=== PATIENT | male | born 1990 | race Caucasian/White ===

== ENCOUNTER 2018-03-17 21:15 | Inpatient (IN) | payer OTHER ==
[2018-03-17 22:29] LABS: BASO % 0.4 % (0.0-2.0); HEMOGLOBIN 12.3 g/dL (12.0-18.0); LYMPH # 1.6 K/uL (1.0-4.3); LYMPH % 27.1 % (20.0-40.0); MEAN CELL VOLUME 78.4 fl (80.0-94.0); MEAN CORPUSCULAR HEMOGLOBIN 26.8 pg (27.0-31.0); MEAN CORPUSCULAR HGB CONC 34.2 g/dL (33.0-37.0); MEAN PLATELET VOLUME 7.9 fl (7.2-11.7); MONO # 0.6 K/uL (0.0-0.8); MONO % 10.2 % (0.0-10.0); NEUT # 3.7 K/uL (1.8-7.0); NEUT % 62.3 % (50.0-75.0); NRBC % 0.1 % (0.0-0.0); RBC 4.58 Mil/uL (4.40-5.90); RED CELL DISTRIBUTION WIDTH 13.1 % (11.5-14.5)
[2018-03-17 22:47] LABS: INR 1.1 (0.9-1.2); PARTIAL THROMBOPLASTIN TIME 30.7 Seconds (25.6-37.1); PROTHROMBIN TIME 12.6 Seconds (9.8-13.1)
[2018-03-17 23:18] LABS: BLOOD UREA NITROGEN 10 mg/dl (9-20)
[2018-03-17 23:19] LABS: CALCIUM 9.3 mg/dL (8.4-10.2); GFR AFRICAN-AMERICAN > 60; GFR NON-AFRICAN AMERICAN > 60
[2018-03-17 23:20] LABS: ALB/GLOB RATIO 1.2 (1.0-2.1)
[2018-03-17] MEDS ORDERED: Potassium Chloride 20 mEq ER Tab PO ONE (23:22)
--- NOTE | 2018-03-17 23:29 | ED PDOC ---
HPI: General Adult Time Seen by Provider: 03/17/18 21:24 Chief Complaint (Nursing): Weakness/Neurological Deficit Chief Complaint (Provider): my legs are weak History Per: Patient History/Exam Limitations: no limitations Onset/Duration Of Symptoms: Days Current Symptoms Are (Timing): Still Present Location Of Discomfort (Image): 1 - weakness 2 - weakness Additional Complaint(s): 27yo male history of thyroid disease now off meds for last several months, c/o weakness to proximal legs and arms, starting yesterday worsening this morning on awakening. States he fell today with resultant back pain and headache. Symptoms are symmetric and denies headache, fever, syncope, chest pain or SOB. Supposed to take methimazole but unable to see PMD for several months. Denies recent illness, rash or fever. Does admit to palpitations, weight loss and sweating. Works at [employer], with recent exercise intolerance. Past Medical History Reviewed: Historical Data, Nursing Documentation, Vital Signs Vital Signs: Last Vital Signs Temp 97.2 F L 03/18/18 16:16 Pulse 96 H 03/18/18 16:16 Resp 20 03/18/18 16:16 BP 137/87 03/18/18 16:16 Pulse Ox 97 03/18/18 16:16 - Medical History Other PMH: per prior chart Graves disease - Surgical History Surgical History: No Surg Hx - Family History Family History: States: Unknown Family Hx - Social History Current smoker - smoking cessation education provided: No Alcohol: None Drugs: Denies - Home Medications Home Medications: Ambulatory Orders Medication Instructions Recorded Albuterol HFA [Ventolin HFA 90 2 puff INH PRN 03/18/18 mcg/actuation (8 g)] Methimazole 10 mg PO TID 03/18/18 - Allergies Allergies/Adverse Reactions: Allergies Allergy/AdvReac Type Severity Reaction Status Date / Time No Known Allergies Allergy Verified 03/17/18 21:36 Review of Systems Constitutional: Positive for: Weakness, Malaise. Negative for: Fever, Chills Eyes: Negative for: Vision Change, Eyelid Inflammation Cardiovascular: Negative for: Chest Pain Respiratory: Negative for: Cough Gastrointestinal: Negative for: Nausea, Abdominal Pain, Diarrhea Genitourinary Male: Negative for: Dysuria Musculoskeletal: Negative for: Neck Pain, Back Pain Skin: Negative for: Rash, Lesions Neurological: Positive for: Weakness. Negative for: Numbness, Incoordination, Change in Speech, Confusion, Seizures, Altered Mental Status, Headache, Dizziness Psych: Negative for: Depression Physical Exam - Reviewed Nursing Documentation Reviewed: Yes Vital Signs Reviewed: Yes - Physical Exam Appears: Positive for: Non-toxic (speech clear no facial assymmetry) Head Exam: Positive for: ATRAUMATIC, NORMAL INSPECTION, NORMOCEPHALIC Skin: Positive for: Normal Color, Warm, DRY Eye Exam: Positive for: Normal appearance, EOMI, PERRL, Other (mild exopthalmos) ENT: Positive for: Normal ENT Inspection Neck: Positive for: Painless ROM (+nodular goiter ), Supple Cardiovascular/Chest: Positive for: Regular Rate, Rhythm Respiratory: Positive for: CNT, Normal Breath Sounds Gastrointestinal/Abdominal: Positive for: Soft. Negative for: Tenderness Back: Positive for: Normal Inspection Extremity: Positive for: Normal ROM DTR - Knee (R): 3+ DTR - Knee (L): 3+ Neurologic/Psych: Positive for: Alert, Gait (slow), Other (babinski downgoing) - Laboratory Results Result Diagrams: 03/17/18 22:26 03/17/18 22:26 - ECG ECG: Positive for: Interpreted By Sd ECG Rhythm: Positive for: Normal ST Segment, Sinus Tachycardia Rate: 110 O2 Sat by Pulse Oximetry: 99 Pulse Ox Interpretation: Normal Medical Decision Making Medical Decision Making: pt w resting tachycardia, mild exopthalmos, concern for thyrotoxicosis labs reveal hypokalemia, TSH <0.02, T3 T4 pending. Imaging obtained given c/o back pain and mild headache, pending Given tachycardia, proximal muscle weakness, admit to medicine for endocrine eval and further workup methimazole and metoprolol initiated d/w Dr Osborn 1215am for admission Disposition - Clinical Impression Clinical Impression: Thyrotoxicosis - Patient ED Disposition Is Patient to be Admitted: Yes Counseled Patient/Family Regarding: Studies Performed, Diagnosis - Disposition Disposition Time: 11:55 Condition: FAIR - Pt Status Changed To: Hospital Disposition Of: Inpatient - Admit Certification Admit to Inpatient:: After my assessment, the patient will require hospitalization for at least two midnights. This is because of the severity of symptoms shown, intensity of services needed, and/or the medical risk in this patient being treated as an outpatient.
[2018-03-17 23:30] LABS: ALBUMIN 3.5 g/dL (3.5-5.0); ALT/SGPT 39 U/L (21-72); AST/SGOT 35 U/L (17-59)
[2018-03-17 23:47] LABS: T3 UPTAKE 58.6 % (23.0-41.0)
[2018-03-18] MEDS ORDERED: Potassium Chloride 20 mEq ER Tab PO ONE (00:14)
--- NOTE | 2018-03-18 00:38 | CT ---
EXAM: CT Head Without Intravenous Contrast EXAM DATE/TIME: 03/17/2018 9:38 PM CLINICAL HISTORY: 27 years old, male; Signs and symptoms; Other: Bilat leg weakness; Patient HX: HX. Of thyroid disease; Additional info: R/O ich TECHNIQUE: Axial computed tomography images of the head/brain without intravenous contrast. All CT scans at this facility use at least one of these dose optimization techniques: automated exposure control; mA and/or kV adjustment per patient size (includes targeted exams where dose is matched to clinical indication); or iterative reconstruction. Coronal and sagittal reformatted images were created and reviewed. COMPARISON: There are no prior studies for comparison. FINDINGS: Brain and ventricles: Ventricles are normal in size and configuration. There is no midline shift. There are no intra-axial or extra-axial mass lesions or areas of hemorrhage. There are no abnormal fluid collections. Harvey-white differentiation is maintained. Bones: Cranial vault is intact. Soft tissues: unremarkable Sinuses: There is no acute sinusitis. Ears and mastoids: Middle ears and mastoids are unremarkable Orbits: Orbital contents are unremarkable. IMPRESSION: No acute intracranial abnormality
--- NOTE | 2018-03-18 00:45 | CT ---
EXAM: CT Cervical Spine Without Intravenous Contrast EXAM DATE/TIME: 03/17/2018 9:38 PM CLINICAL HISTORY: 27 years old, male; Signs and symptoms; Weakness; Patient HX: HX of thyroid disease; Additional info: B/l le and ue weakness TECHNIQUE: Axial computed tomography images of the cervical spine without intravenous contrast. All CT scans at this facility use at least one of these dose optimization techniques: automated exposure control; mA and/or kV adjustment per patient size (includes targeted exams where dose is matched to clinical indication); or iterative reconstruction. Coronal and sagittal reformatted images were created and reviewed. COMPARISON: There are no prior studies for comparison. FINDINGS: Vertebrae: There is maintenance of the cervical lordosis. There is no prevertebral soft tissue swelling. There are no fractures. There is mild disc space narrowing anteriorly at C2/C3. Remaining cervical disc spaces are maintained. There is partial fusion of the T1 and T2 vertebral bodies.. Facet joints align anatomically. There is facet ankylosis T1/T2. Spinous processes align in the expected fashion. Bone mineralization is normal. Discs/spinal canal/neural foramina: See above. Soft tissues: See above. Lung apices: There is minimal scarring at the right apex. Left apex is clear. 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
--- NOTE | 2018-03-18 01:07 | CT ---
EXAM: CT Thoracic Spine Without Intravenous Contrast EXAM DATE/TIME: 03/17/2018 9:38 PM CLINICAL HISTORY: 27 years old, male; Signs and symptoms; Weakness; Patient HX: HX of thyroid. Disease; Additional info: B/l ue and le weakness TECHNIQUE: Axial computed tomography images of the thoracic spine without intravenous contrast. All CT scans at this facility use at least one of these dose optimization techniques: automated exposure control; mA and/or kV adjustment per patient size (includes targeted exams where dose is matched to clinical indication); or iterative reconstruction. Coronal and sagittal reformatted images were created and reviewed. COMPARISON: There are no prior studies for comparison. FINDINGS: Vertebrae: Thoracic vertebral bodies are normal in height. Posterior elements are intact at all levels. There is partial ankylosis T1/T2 vertebral bodies. There is T1/T2 facet joint ankylosis. Remaining facet joints are patent.Spinous processes align in the expected fashion. There is mild disc space narrowing at multiple levels. There are small early osteophytes. There are Schmorl's nodes at multiple levels greatest T10-T11 and T11-T12. Discs/spinal canal/neural foramina: See above. Soft tissues: Paraspinous soft tissues are unremarkable. Lungs: Motion limits evaluation of pulmonary parenchyma. IMPRESSION: Early degenerative change, no acute osseous abnormality ; partial ankylosis T1/T2
--- NOTE | 2018-03-18 01:07 | CT ---
EXAM: CT Lumbar Spine Without Intravenous Contrast EXAM DATE/TIME: 03/17/2018 9:38 PM CLINICAL HISTORY: 27 years old, male; Signs and symptoms; Weakness; Patient HX: HX: Of thyroid disease; Additional info: Le weakness TECHNIQUE: Axial computed tomography images of the lumbar spine without intravenous contrast. All CT scans at this facility use at least one of these dose optimization techniques: automated exposure control; mA and/or kV adjustment per patient size (includes targeted exams where dose is matched to clinical indication); or iterative reconstruction. Coronal and sagittal reformatted images were created and reviewed. COMPARISON: There are no prior studies for comparison. FINDINGS: Vertebrae: Lumbar vertebral bodies are normal in height and alignment. There are no fractures. There is mild degenerative disc disease. There are small Schmorl's nodes at multiple levels.Facet joints align anatomically.Spinous processes align in the expected fashion. There is partial ankylosis of the left sacroiliac joint. Discs/spinal canal/neural foramina: See above. Soft tissues: Psoas and paraspinous muscles are symmetric. IMPRESSION: Early degenerative change, no acute osseous abnormality
[2018-03-18 01:57] LABS: T4 37.3 ug/dl (5.5-11.0)
[2018-03-18 01:58] LABS: T3 9.4 nmol/L (1.49-2.60)
[2018-03-18] MEDS ORDERED: Dextrose 5%/0.45% NS 1,000 ML IV SCH (06:00)
[2018-03-18] MEDS ORDERED: Pneumococcal 23-Valent Vaccine IM ONE (06:00)
[2018-03-18] MEDS: Enoxaparin 40 mg Syringe SC SCH (09:09)
--- NOTE | 2018-03-18 12:22 | CP.PCM.HP ---
History of Present Illness - History of Present Illness History of Present Illness: 27 YR OLD MALE WITH HISTORY OF HYPERTHYROIDISM WHO IS ADMITTED BECAUSE OF THYROID CRISIS AND DIFFICULTY WALKING WITH TACHYCARDIA.HE WAS SEEN IN THE ER AND NOTED TO HAVE SEVERE HYPERTHYROIDISM.HE IS THEREFORE ADMITTED FOR EVALUATION AND THERAPY.DENIES CHEST PAINS/SOB. HX OF BRONCHIAL ASTHMA CONTROLLED ON VENTOLIN INHALER. Present on Admission - Present on Admission Any Indicators Present on Admission: Yes Past Patient History - Past Medical History & Family History Past Medical History?: Yes - Past Social History Smoking Status: Never Smoked - CARDIAC Hx Hypertension: Yes - PULMONARY Hx Respiratory Disorders: Yes Hx Asthma: Yes - NEUROLOGICAL Hx Neurological Disorder: No - HEENT Other/Comment: wears glasses for sight - RENAL Hx Chronic Kidney Disease: No - ENDOCRINE/METABOLIC Hx Diabetes Mellitus Type 1: Yes Hx Hyperthyroidism: Yes - HEMATOLOGICAL/ONCOLOGICAL Hx Blood Disorders: No - INTEGUMENTARY Hx Dermatological Problems: No - MUSCULOSKELETAL/RHEUMATOLOGICAL Hx Falls: Yes - GENITOURINARY/GYNECOLOGICAL Hx Genitourinary Disorders: No - PSYCHIATRIC Hx Substance Use: No - SURGICAL HISTORY Hx Surgeries: No - ANESTHESIA Hx Anesthesia: No Meds Allergies/Adverse Reactions: Allergies Allergy/AdvReac Type Severity Reaction Status Date / Time No Known Allergies Allergy Verified 03/17/18 21:36 Physical Exam - Constitutional Appears: No Acute Distress - Head Exam Head Exam: ATRAUMATIC, NORMAL INSPECTION, NORMOCEPHALIC - Eye Exam Eye Exam: EOMI, Normal appearance, PERRL Pupil Exam: NORMAL ACCOMODATION, PERRL - ENT Exam ENT Exam: Mucous Membranes Moist, Normal Exam - Neck Exam Neck exam: Positive for: Normal Inspection - Respiratory Exam Respiratory Exam: Clear to Auscultation Bilateral, NORMAL BREATHING PATTERN - Cardiovascular Exam Cardiovascular Exam: Tachycardia - GI/Abdominal Exam GI & Abdominal Exam: Normal Bowel Sounds, Soft. absent: Tenderness - Rectal Exam Rectal Exam: NORMAL INSPECTION - Extremities Exam Extremities exam: Positive for: normal inspection - Back Exam Back exam: NORMAL INSPECTION - Neurological Exam Neurological exam: Alert, CN II-XII Intact, Normal Gait, Oriented x3, Reflexes Normal - Psychiatric Exam Psychiatric exam: Normal Affect, Normal Mood - Skin Skin Exam: Dry, Intact, Normal Color, Warm Results - Vital Signs Recent Vital Signs: Last Vital Signs Temp 98 F 03/18/18 12:17 Pulse 98 H 03/18/18 12:17 Resp 18 03/18/18 12:17 BP 145/88 03/18/18 12:17 Pulse Ox 96 03/18/18 12:17 - Labs Result Diagrams: 03/17/18 22:26 03/17/18 22:26 Labs: Laboratory Results - last 24 hr 03/17/18 03/17/18 03/17/18 22:26 22:26 22:26 WBC 6.0 RBC 4.58 Hgb 12.3 Hct 35.9 MCV 78.4 L MCH 26.8 L MCHC 34.2 RDW 13.1 Plt Count 233 MPV 7.9 Neut % (Auto) 62.3 Lymph % (Auto) 27.1 [place] % (Auto) 10.2 H Eos % (Auto) 0.0 Baso % (Auto) 0.4 Neut # (Auto) 3.7 Lymph # (Auto) 1.6 [place] # (Auto) 0.6 Eos # (Auto) 0.0 Baso # (Auto) 0.0 PT 12.6 INR 1.1 APTT 30.7 Sodium 143 Potassium 3.0 L Chloride 105 Carbon Dioxide 25 Anion Gap 16 BUN 10 Creatinine 0.5 L Est GFR ( Amer) > 60 Est GFR (Non-Af Amer) > 60 POC Glucose (mg/dL) Random Glucose 168 H Calcium 9.3 Phosphorus Magnesium Total Bilirubin 0.4 AST 35 ALT 39 Alkaline Phosphatase 92 Total Creatine Kinase 44 L Troponin I 0.0390 Total Protein 6.6 Albumin 3.5 Globulin 3.0 Albumin/Globulin Ratio 1.2 Thyroxine (T4) 37.3 H Total T3 9.4 H T3 Uptake 58.6 H TSH 3rd Generation < 0.02 L 03/17/18 03/18/18 03/18/18 23:46 03:30 05:35 WBC RBC Hgb Hct MCV MCH MCHC RDW Plt Count MPV Neut % (Auto) Lymph % (Auto) [place] % (Auto) Eos % (Auto) Baso % (Auto) Neut # (Auto) Lymph # (Auto) [place] # (Auto) Eos # (Auto) Baso # (Auto) PT INR APTT Sodium Potassium Chloride Carbon Dioxide Anion Gap BUN Creatinine Est GFR ( Amer) Est GFR (Non-Af Amer) POC Glucose (mg/dL) 123 H 113 H Random Glucose Calcium Phosphorus 3.6 Magnesium 1.6 Total Bilirubin AST ALT Alkaline Phosphatase Total Creatine Kinase Troponin I Total Protein Albumin Globulin Albumin/Globulin Ratio Thyroxine (T4) Total T3 T3 Uptake TSH 3rd Generation 03/18/18 10:48 WBC RBC Hgb Hct MCV MCH MCHC RDW Plt Count MPV Neut % (Auto) Lymph % (Auto) [place] % (Auto) Eos % (Auto) Baso % (Auto) Neut # (Auto) Lymph # (Auto) [place] # (Auto) Eos # (Auto) Baso # (Auto) PT INR APTT Sodium Potassium Chloride Carbon Dioxide Anion Gap BUN Creatinine Est GFR ( Amer) Est GFR (Non-Af Amer) POC Glucose (mg/dL) 186 H Random Glucose Calcium Phosphorus Magnesium Total Bilirubin AST ALT Alkaline Phosphatase Total Creatine Kinase Troponin I Total Protein Albumin Globulin Albumin/Globulin Ratio Thyroxine (T4) Total T3 T3 Uptake TSH 3rd Generation Assessment & Plan - Assessment and Plan (Free Text) Assessment: THYROTOXICOSIS TACHYCARDIA DUE TO THYROID DZ HX OF ASTHMA Plan: CONTINUE THERAPY ORDERED ENDOCRINOLOGY EVALUATION - Date & Time Date: 03/18/18 Time: 12:27
[2018-03-19 00:28] VITALS: RESP 18
--- NOTE | 2018-03-19 04:01 | CON ---
DATE: 03/18/2018 LOCATION: Room 416, Bed 2. HISTORY OF PRESENT ILLNESS: This is a 27-year-old male with known history of Graves disease and hyperthyroidism, but has been off medications for over 2 months because of insurance constraints and has now been admitted because of progressively worsening shortness of breath and palpitations and is being referred now for endocrine evaluation and management. PAST MEDICAL HISTORY: History of hyperthyroidism, previously on methimazole taken three times a day but not as mentioned, was discontinued because of financial and insurance constraints. FAMILY HISTORY: Positive for thyroid disorder with his father and his sibling having thyroid condition. Also history of hypertension and dyslipidemia. SOCIAL HISTORY: The patient has supportive family. No known substance use. REVIEW OF SYSTEMS: As mentioned above, admits to generalized body weakness with marked insomnia and disrupted sleep patterns. Also admits to episodic dizziness and lightheadedness with suboptimal energy level and generalized body weakness, worse in the last 2 to 3 weeks prior to admission. Admits to progressively worsening palpitations with shortness of breath, initially on exertion, and then at rest. Also admits to nausea, dyspepsia, and hyperdefecation. Moreover, admits to episodic bouts of anxiety and mood instability and has been recently quick tempered as noted. PHYSICAL EXAMINATION: GENERAL: This is an average built male, in no apparent distress. VITAL SIGNS: Blood pressure of 150/90, pulse of 110 beats per minute and regular, temperature 98, respirations 20, height is 5 feet 7 inches, weight is 175 pounds. HEENT: Head normocephalic. Eyes anicteric with pink conjunctivae. There is overt proptosis and lid retraction with positive stare noted bilaterally. NECK: Supple. Thyroid gland shows diffuse moderate thyromegaly, which is firm and nontender with positive bruit, most prominent of the anterior neck area. HEART: Shows hyperdynamic precordium. S1, S2 is rapid and regular. LUNGS: Clear to auscultation. ABDOMEN: Abdomen is flat, soft with positive bowel sounds. EXTREMITIES: No peripheral edema. Pulses are +2 bilaterally. LABORATORY DATA: His chemistry showed a BUN of 10, sodium 143, potassium 3, chloride 105, CO2 of 25, glucose 168, and creatinine 0.5. His total T4 is 37.3 with a T3 of 9.4 and a TSH of less than 0.02. ASSESSMENT: This is a 27-year-old male with overt thyrotoxicosis, presenting here with marked hyperthyroidism, both historically, clinically, and biochemically related to recent drug omission with known history of Graves disease as noted. He also has overt Graves orbitopathy with lid retraction and proptosis as noted. He also has an underlying diffuse toxic goiter of moderate dimensions with no overt compressive or obstructive manifestations at this time. PLAN OF MANAGEMENT: As discussed with the patient lengthily at bedside, the imperative need for initiation of high-dose medical therapy will be undertaken today, and we will increase the Tapazole to 20 mg p.o. t.i.d. after meals to start today as ordered. We will continue the beta blockers as given and observe his metabolic and hemodynamic response thereof. We will obtain a comprehensive thyroid hormonal profile tomorrow to include a total and free T4 and TSH as ordered. We will add thyroid stimulating immunoglobulin and thyroid peroxidase antibody to confirm and/or indicate the presence of underlying thyroid autoimmunity. We will also schedule a thyroid ultrasound to fully measure the thyroid lobe dimensions. The therapeutic options were discussed with the patient at the bedside i.e., medical therapy, radioactive iodine ablation which is not really recommended in the patient with a moderately large goiter and surgical resection, thereof. The patient at this time is very inclined to go for surgical resection as noted. We will obtain serial chemistries and supplement accordingly needed. We would supplement potassium if hypokalemia persist as this is expected in the presence of overt hyperthyroidism. We will follow with you. Mili Oh MD
[2018-03-19 05:08] VITALS: O2SAT 98
[2018-03-19 08:09] VITALS: BP 133/75; TEMP 98.1
[2018-03-19] MEDS: Enoxaparin 40 mg Syringe SC SCH (08:35)
--- NOTE | 2018-03-19 10:37 | CP.PCM.DIS ---
Provider - Provider Date of Admission: 03/18/18 00:21 Attending physician: Burke Osborn MD Time Spent in preparation of Discharge (in minutes): 30 Diagnosis - Discharge Diagnosis (1) Hypokalemia Status: Acute (2) Tachycardia Status: Acute (3) Thyrotoxicosis Status: Acute Hospital Course - Lab Results Lab Results: Most Recent Lab Values WBC 6.0 K/uL (4.8-10.8) 03/17/18: RBC 4.58 Mil/uL (4.40-5.90) 03/17/18 22: Hgb 12.3 g/dL (12.0-18.0) 03/17/18: Hct 35.9 % (35.0-51.0) 03/17/18: MCV 78.4 fl (80.0-94.0) L 03/17/18: MCH 26.8 pg (27.0-31.0) L 03/17/18: MCHC 34.2 g/dL (33.0-37.0) 03/17/18: RDW 13.1 % (11.5-14.5) 03/17/18: Plt Count 233 K/uL (130-400) 03/17/18: MPV 7.9 fl (7.2-11.7) 03/17/18: Neut % (Auto) 62.3 % (50.0-75.0) 03/17/18: Lymph % (Auto) 27.1 % (20.0-40.0) 03/17/18: [place] % (Auto) 10.2 % (0.0-10.0) H 03/17/18: Eos % (Auto) 0.0 % (0.0-4.0) 03/17/18: Baso % (Auto) 0.4 % (0.0-2.0) 03/17/18: Neut # (Auto) 3.7 K/uL (1.8-7.0) 03/17/18: Lymph # (Auto) 1.6 K/uL (1.0-4.3) 03/17/18: [place] # (Auto) 0.6 K/uL (0.0-0.8) 03/17/18 22:26 Eos # (Auto) 0.0 K/uL (0.0-0.7) 03/17/18 22:26 Baso # (Auto) 0.0 K/uL (0.0-0.2) 03/17/18 22:26 PT 12.6 Seconds (9.8-13.1) 03/17/18 22: INR 1.1 (0.9-1.2) 03/17/18 22:26 APTT 30.7 Seconds (25.6-37.1) 03/17/18 22:26 Sodium 143 mmol/l (132-148) 03/17/18 22:26 Potassium 3.0 MMOL/L (3.6-5.0) L 03/17/18 22:26 Chloride 105 mmol/L (98-107) 03/17/18 22:26 Carbon Dioxide 25 mmol/L (22-30) 03/17/18 22:26 Anion Gap 16 (10-20) 03/17/18 22:26 BUN 10 mg/dl (9-20) 03/17/18 22:26 Creatinine 0.5 mg/dl (0.8-1.5) L 03/17/18 22:26 Est GFR ( Amer) > 60 03/17/18 22:26 Est GFR (Non-Af Amer) > 60 03/17/18 22:26 POC Glucose (mg/dL) 170 mg/dL (65-110) H 03/18/18 21:30 Random Glucose 168 mg/dL (75-110) H 03/17/18 22:26 Calcium 9.3 mg/dL (8.4-10.2) 03/17/18 22:26 Phosphorus 3.6 mg/dl (2.5-4.5) 03/17/18 23:46 Magnesium 1.6 MG/DL (1.6-2.3) 03/17/18 23:46 Total Bilirubin 0.4 mg/dl (0.2-1.3) 03/17/18 22:26 AST 35 U/L (17-59) 03/17/18 22:26 ALT 39 U/L (21-72) 03/17/18 22:26 Alkaline Phosphatase 92 U/L (38-126) 03/17/18 22:26 Total Creatine Kinase 44 U/L (55-170) L 03/17/18 22:26 Troponin I 0.0390 ng/mL (0.00-0.120) 03/17/18 22:26 Total Protein 6.6 G/DL (6.3-8.2) 03/17/18 22:26 Albumin 3.5 g/dL (3.5-5.0) 03/17/18 22: Globulin 3.0 gm/dL (2.2-3.9) 03/17/18 22:26 Albumin/Globulin Ratio 1.2 (1.0-2.1) 03/17/18 22:26 Thyroxine (T4) 37.3 ug/dl (5.5-11.0) H 03/17/18 22: Total T3 9.4 nmol/L (1.49-2.60) H 03/17/18 22: T3 Uptake 58.6 % (23.0-41.0) H 03/17/18 22:26 TSH 3rd Generation < 0.02 mIU/ML (0.46-4.68) L 03/17/18 22:26 - Hospital Course Hospital Course: CLINICALLY IMPROVED GAIT AND MUSCLE CRAMPS IMPROVED Discharge Exam - Head Exam Head Exam: ATRAUMATIC, NORMAL INSPECTION, NORMOCEPHALIC - Eye Exam Eye Exam: EOMI, Normal appearance, PERRL Pupil Exam: NORMAL ACCOMODATION, PERRL - Cardiovascular Exam Cardiovascular Exam: Tachycardia - GI/Abdominal Exam GI & Abdominal Exam: Normal Bowel Sounds - Rectal Exam Rectal Exam: NORMAL INSPECTION - Neurological Exam Neurological exam: Alert, CN II-XII Intact, Normal Gait, Oriented x3, Reflexes Normal - Psychiatric Exam Psychiatric exam: Normal Affect, Normal Mood - Skin Skin Exam: Dry, Intact, Normal Color, Warm Discharge Plan - Follow Up Plan Condition: FAIR Disposition: HOME/ ROUTINE Patient education suggested?: Yes Additional Instructions: PT SIGNED OUT AGAINST MEDICAL ADVISE 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
[2018-03-19 10:40] VITALS: PULSE 5
--- NOTE | 2018-03-19 12:55 | CARD ---
APPROVED REPORT EKG Measurement Heart [id number] <Conclusion> Sinus tachycardia Nonspecific T wave abnormality Abnormal ECG
--- NOTE | 2018-03-19 13:48 | PN ---
DATE: 03/19/2018 ENDO FOLLOWUP NOTE LOCATION: Room 416. SUBJECTIVE: This is a 27-year-old male presenting here with generalized body weakness and supervening palpitations and sinus tachycardia related to marked hyperthyroidism noted both historically, clinically and biochemically as noted, thereof. His repeat thyroid studies are pending at this time but the initial thyroxine level was 37.3 mcg/dL with a TSH of less than 0.02. His glucose values are fluctuating although he has not been diagnosed to have overt type 2 diabetes or prediabetes, and we awaiting the A1c levels as ordered. His glucose values are fluctuating and ranging from 186 to 113 and 251 mg/dL. ASSESSMENT: This is a 27-year-old male with overt thyrotoxicosis, presenting here with marked hyperthyroidism, both historically, clinically and biochemically related to underlying Graves disease with concomitant diffuse toxic goiter and Graves orbitopathy as noted. He also has impaired glucose tolerance and hyperglycemic accelerations awaiting the confirmation when A1c level, whether we are dealing with early type 2 diabetes and/or prediabetes. Plan of management as discussed with the patient's staff. We will continue the high dose medical therapy at this time to improve his clinical and hemodynamic status, and continue the Tapazole given as 20 mg p.o. t.i.d. after meals as ordered. We will obtain serial chemistries and supplement accordingly needed. We will also obtain serial thyroid studies and titrate his dose regimen accordingly. We will follow with you. Mili Oh MD
== END 2018-03-19 10:55 | disposition left against medical advice (07) | DRG 300 ==
LOC: H.ER 21:15 → H.ERHOLD 03-18 00:21 → H.TEL 03-18 03:44
PROVIDERS: ADMIT Internal Medicine Pulmonary Disease; ATTEND Internal Medicine Pulmonary Disease
DX: E05.01 Thyrotoxicosis with diffuse goiter with thyrotoxic crisis or storm (principal); E87.6 Hypokalemia; J45.909 Unspecified asthma, uncomplicated; I10 Essential (primary) hypertension; R73.02 Impaired glucose tolerance (oral)